=== PATIENT | male | born 1985 | race Caucasian/White ===

== ENCOUNTER 2023-10-26 15:32 | Emergency (ER) | payer SELFPAY ==
[~2023-10-26] VITALS: Ht 172.7 cm; Wt 90.7 kg
[2023-10-26 15:32] VITALS: BP 124/86; PULSE 102; RESP 18; TEMP 98.1; O2SAT 94
[2023-10-26 17:43] LABS: BASOPHILS # (AUTO) 0.1 K/uL (0.00-0.22); BASOPHILS % (AUTO) 0.7 % (0.0-2.0); EOSINOPHILS # (AUTO) 0.3 K/uL (0-0.4); EOSINOPHILS % (AUTO) 2.4 % (0.0-4.0); HEMATOCRIT 43.5 % (36-52); HEMOGLOBIN 15.1 g/dL (12.0-18.0); LYMPHOCYTES # (AUTO) 4.4 K/uL (2.0-11.5); LYMPHOCYTES % (AUTO) 39.5 % (20.5-51.1); MEAN CORPUSCULAR HEMOGLOBIN 30 pg (27-31); MEAN CORPUSCULAR HGB CONC 35 g/dL (33-37); MEAN CORPUSCULAR VOLUME 85.9 fL (80-94); MONOCYTES # (AUTO) 1.2 K/uL (0.8-1.0); MONOCYTES % (AUTO) 10.9 % (1.7-9.3); NEUTROPHILS # (AUTO) 5.1 K/uL (1.8-7.7); NEUTROPHILS % (AUTO) 46.5 % (42.2-75.2); PLATELET COUNT (AUTO) 354 K/uL (140-450); RED BLOOD CELL COUNT(AUTO) 5.07 MIL/uL (4.20-6.10); RED CELL DISTRIBUTION WIDTH 15.2 % (11.6-13.7); WHITE BLOOD COUNT (AUTO) 11.1 K/uL (4.8-10.8)
[2023-10-26 17:59] LABS: ANION GAP 12.2 (8-16); CALCIUM 8.9 mg/dL (8.5-10.1); CARBON DIOXIDE 27.7 mmol/L (21-32); CREATININE 1.1 mg/dL (0.6-1.3); TOTAL BILIRUBIN 0.4 mg/dL (0.0-1.0); TOTAL PROTEIN, SERUM 7.7 g/dL (6.4-8.2)
[2023-10-26 18:04] LABS: ALCOHOL, BLOOD 72 mg/dL (<10)
[2023-10-26 18:07] LABS: LACTIC ACID 2.6 mmol/L (0.4-2.0)
[2023-10-26 18:08] LABS: POTASSIUM 2.9 mmol/L (3.5-5.1)
[2023-10-26] MEDS: NACL 0.9% 1,000 ML IV ONE (18:27)
[2023-10-26] MEDS: POTASSIUM CHLORIDE 10 MEQ TABER PO ONE (18:29)
[2023-10-26] MEDS: KCL 20 MEQ IN 100 mL PREMIX 100 ML IV ONE (18:29)
[2023-10-26 20:19] LABS: FLU A ANTIGEN NEGATIVE (NEGATIVE); FLU B ANTIGEN NEGATIVE (NEGATIVE)
[2023-10-26 21:21] VITALS: BP 137/80; PULSE 90; RESP 20; TEMP 98.3; O2SAT 99
[2023-10-26 21:49] LABS: AMPHETAMINE, URINE POSITIVE ng/ml (NEG <=1000); BARBITURATE, URINE NEGATIVE ng/ml (NEG <=200)
[2023-10-26 21:50] LABS: BENZODIAZEPINE, URINE NEGATIVE ng/mL (NEG <=200); CANNABINOID, URINE POSITIVE ng/mL (NEG <=50); COCAINE, URINE NEGATIVE ng/mL (NEG <=300); OPIATE, URINE NEGATIVE ng/mL (NEG <=2000); PHENCYCLIDINE SCREEN,URINE NEGATIVE ng/mL (NEG <=25)
== END 2023-10-26 21:18 | disposition home or self-care (01) ==
LOC: MED 15:32
DX: T50.994A Poisoning by other drugs, medicaments and biological substances, undetermined, initial encounter (principal); E87.6 Hypokalemia; Z20.822 Contact with and (suspected) exposure to COVID-19; Y92.89 Other specified places as the place of occurrence of the external cause
CPT/HCPCS: 36415; 71045; 80053; 80305; 82948; 83605; 83880; 84484; 85025; 87426; 87804; 93005; 96365; 99285; G0482; J3480; J7030